=== PATIENT | male | born 1970 | race Caucasian/White ===

== ENCOUNTER 2024-09-13 14:11 | Inpatient (IN) | payer OTHER, SELFPAY ==
[2024-09-13] VITALS (10 sets, daily range): BP systolic 111–171; BP diastolic 51–89; PULSE 71–84; BMI 32.9
--- NOTE | 2024-09-13 10:29 | ED.GENMED ---
History of Present Illness
General
Chief Complaint: Abdominal Pain
Source: patient
Exam Limitations: none
Time Seen by Provider: 09/13/24 10:23
History of Present Illness
History of Present Illness:
54-year-old male presents complaining of mainly left lower abdominal pain but occasionally radiates to the epigastric region. This has been intermittent since last 2 weeks. It is sharp in nature without associated fever nausea or vomiting. He
does have history of diverticulitis. No urinary symptoms. He also notes a history of a kidney stone. No chest pain. No shortness of breath. He had some loose stool with this and was taking Pepto-Bismol and noticed that his stool was dark
temporarily then this resolved.
Past History
Past History
ED Past Medical History: HTN, Hypercholesterolemia, Psychiatric (Alcohol abuse, social anxiety) and Other (Diverticulitis)
ED Past Surgical History: Negative Cardiac or Cholecystectomy
Social History
Tobacco: Smoker
Alcohol: Chronic alcoholic
Drug: None
Personal: Other
Living: with roommate
Employment: Employed
Family History
Family History: Unable to obtain
Phy Exam
Physical Exam
Physical Exam:
General: Well-appearing male no respiratory distress
HEENT normocephalic atraumatic
Heart: Regular rate and rhythm
Lungs: Clear no wheeze
Abdomen soft mild tenderness to the left lower quadrant no guarding or rebound nondistended no costovertebral angle tenderness
Extremities: No cyanosis
Course
Orders/Labs/Results
Orders:
Orders
09/13/24 10:29
CT Abd/pelvis W Iv Cont Urgent
Comment:
Reason For Exam: llq pain
09/13/24 11:03
Complete Blood Count/With Diff Urgent
Comprehensive Metabolic Panel Urgent
Lipase Urgent
Urinalysis Reflex To Culture Urgent
Date Specimen was Collected: 09/13/24
Time Specimen was Collected: 11:02
Urine Microscopic Reflex Cult Urgent
09/13/24 11:24
Ketorolac [Toradol] 15 mg IV NOW STA
09/13/24 13:15
Type+Screen Urgent
Pantoprazole [Protonix IV] 40 mg IV NOW STA
Piperacillin/Tazo 3.375 Gram [Zosyn] 3.375 gram in 50 ml IV NOW
Abnormal Lab Results
09/13/24
11:03
WBC 11.8 H 10^3/uL
(4.8-10.8)
RBC 2.71 L 10^6/uL
(4.70-6.10)
Hgb 8.4 L g/dL
(13.0-18.0)
Hct 24.7 L %
(39.0-52.0)
MPV 11.1 H fL
(7.4-10.4)
Abs Immat Gran (auto) 0.1 H 10^3/uL
(0-0.05)
Absolute Neuts (auto) 9.4 H 10^3/uL
(1.4-6.5)
Absolute Lymphs (auto) 1.1 L 10^3/uL
(1.2-3.4)
Absolute Monos (auto) 0.9 H 10^3/uL
(0.1-0.6)
Neutrophils % 79.6 H %
(42.2-75.2)
Lymphocytes % 9.5 L %
(20.5-51.1)
Chloride 110 H mmol/L
(98-107)
BUN 26 H mg/dl
(9-20)
Glucose 113 H mg/dl
(70-99)
Total Protein 6.0 L g/dl
(6.3-8.2)
Urine Bacteria (Reflex) Few A
(Negative)
Urine Albumin (Reflex) 1+ A
(Neg - Trace)
06/21/25 11:03
09/13/24 11:03
Vital Signs
Initial and Last Documented VS:
Initial Vital Signs
Temp Pulse Resp BP Pulse Ox
98.9 F 101 18 162/89 98
09/13/24 10:15 09/13/24 10:15 09/13/24 10:15 09/13/24 10:15 09/13/24 10:15
Last Documented Vital Signs
Temp Pulse Resp BP Pulse Ox
98.9 F 88 11 171/84 98
09/13/24 10:15 09/13/24 12:00 09/13/24 12:00 09/13/24 12:00 09/13/24 11:19
MDM/Problems Addressed
Differential Diagnosis Includes:
Abdominal pain mainly left lower. Consider viral illness versus diverticulitis versus renal colic
Check labs. Will order CT of the abdomen
*Pulse Oximetry
SaO2: 98
Oxygen Mode of Delivery: Room air
Patient hypoxic: no
*Critical Care Note
Total Time (30-74mins, 75-104mins- exclusive of procedures): Not Applicable
Update Note
Update Note:
CT demonstrates acute diverticulitis as well as acute peptic ulcer disease in the second portion of the duodenum. Patient reexamined he does appear pale. Vital signs have remained stable. Rectal exam was performed. No evidence of blood on
Hemoccult testing. Although there was no significant stool in the rectum at the time of test. Patient is not anticoagulated. His hemoglobin is 8.4. Will admit for treatment of diverticulitis and anemia in the setting of peptic ulcer disease.
Hospitalist and GI team made aware
ED Attending Note
-
Portions of this chart may have been created with voice recognition software.� Occasional wrong word or��sound alike� substitutions may have occurred due to the inherent limitations of voice recognition software.
Discharge Plan
Departure
Patient Disposition: Admit
Date of Disposition: 09/13/24
Time of Disposition: 13:24
Presentation/result/management discussed w/ accepting MD/DO: Hospitalist
Discharge Problem:
Anemia, GI bleed, Acute diverticulitis
Prescriptions:
No Action
latanoprost 1 DROP drops
1 drp OPHTHALMIC HS
Patient Comments:
both eyes
Referrals:
Latoya Esparza MD [Family Provider]
Interventions
Interventions:
*Risk Screen - Suicide Last Done: 09/13/24 10:18
*General Assessment Last Done: 09/13/24 10:15
*Neglect/Abuse Screening Last Done: 09/13/24 10:15
*ED- Fall Risk Assessment Last Done: 09/13/24 11:09
*ED COVID-19 Vaccine History Last Done: 09/13/24 11:09
HS-Guhthj-Zytcjncbrz Assessment Last Done: 09/13/24 11:24
Discharge Date and Time
Print Language: ARMENIAN
[2024-09-13 11:39] LABS: % Basophils 0.4 % (0-2); % Eosinophils 2.5 % (0-6); % Immature Granulocytes 0.4 % (0-0.5); % Lymphocytes 9.5 % (20.5-51.1); % Monocytes 7.6 % (1.7-9.3); % Neutrophils 79.6 % (42.2-75.2); Absolute Basophils 0.1 10^3/uL (0-0.2); Absolute Eosinophils 0.3 10^3/uL (0-0.7); Absolute Immature Granulocytes 0.1 10^3/uL (0-0.05); Absolute Lymphocytes 1.1 10^3/uL (1.2-3.4); Absolute Monocytes 0.9 10^3/uL (0.1-0.6); Absolute Neutrophils 9.4 10^3/uL (1.4-6.5); Hematocrit 24.7 % (39.0-52.0); Hemoglobin 8.4 g/dL (13.0-18.0); Mean Corpuscular Volume 91.1 fL (80.0-94.0); Mean Platelet Volume 11.1 fL (7.4-10.4); Nucleated Red Blood Cells % 0 % (-); Platelet Count 252 10^3/uL (130-400); Red Blood Cell Count 2.71 10^6/uL (4.70-6.10); Red Cell Dist. Width 13.3 % (11.5-14.5); White Blood Cell Count 11.8 10^3/uL (4.8-10.8)
[2024-09-13 11:43] LABS: Urine Albumin 1+ (Neg - Trace); Urine Bilirubin Negative (Negative); Urine Character Cloudy (Clear); Urine Color Yellow; Urine Glucose Negative (Negative); Urine Ketone Negative (Negative); Urine Leukocyte Negative (Negative); Urine Nitrite Negative (Negative); Urine Occult Blood Negative (Negative); Urine Specific Gravity 1.025 (<1.030); Urine Urobilinogen Negative (Neg - 1+)
[2024-09-13] MEDS: TORADOL 15 MG IV (11:50)
[2024-09-13 12:06] LABS: ALT (SGPT) 16 U/L (0-50); AST (SGOT) 17 U/L (17-59); Albumin 3.7 g/dl (3.5-5.0); Alkaline Phosphatase 92 U/L (38-126); Blood Urea Nitrogen 26 mg/dl (9-20); Calcium 9.2 mg/dl (8.4-10.2); Carbon Dioxide 25 mmol/L (22-30); Chloride 110 mmol/L (98-107); Estimated Creatinine Clearance 109 ml/min; Glucose 113 mg/dl (70-99); Lipase 26 U/L (23-300); Potassium 5.1 mmol/L (3.5-5.1); Sodium 141 mmol/L (135-145); Total Bilirubin 0.4 mg/dl (0.2-1.3); eGFR > 60.00
[2024-09-13 12:21] LABS: Urine Squamous Cell 0-2 /LPF (Few); Urine Uric Acid Crystals Present
[2024-09-13 12:22] LABS: Urine Bacteria Few (Negative); Urine Red Blood Cell 0-2 /HPF (0-2); Urine White Cell 0-2 /HPF (0-5)
[2024-09-13] MEDS: PROTONIX IV 40 MG IV (13:30)
[2024-09-13] MEDS: ZOSYN 50 IV ×2 (13:33→17:07)
--- NOTE | 2024-09-13 13:39 | HPS.HSE ---
Family Physician
-
Family Physician: Latoya Esparza
Chief Complaint
-
Abdominal pain
History of Present Illness
54-year-old man left lower abdominal pain intermittent for the past 2 weeks he had some dark/black stool he took some Pepto-Bismol as well. No fever or dizziness. Patient stated that he has been nauseous but no vomiting. No bloody stools. Pain 9
out of 10 in intensity worse with p.o. intake. He was also taking naproxen twice a day for pain
Medical History
Past Medical History
Past Medical History: Reports Other
Additional Past Medical History:
Hypertension, hyperlipidemia, depression, history of diverticulitis,
Past Surgical History: Reports Other
Additional Past Surgical History:
Left shoulder surgery. But hold for intracranial hemorrhage treated at [facility] 2 years ago
Social History
Tobacco: Former Smoker
Alcohol: Former
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
Family History
Family History: Diabetes (Mother)
Allergies / Home Medications
Allergies reflects when Allergies were last updated in [facility].
Home Medications with original date entered in [facility]
Allergy/Medication List:
Allergies
Allergy/AdvReac Type Severity Reaction Status Date / Time
amoxicillin (Amoxicillin) Allergy Unknown Verified 09/13/24 10:14
Home Medications
latanoprost 0.005 % eye drops 1 drp BOTH EYES HS 12/24/09
amlodipine 5 mg tablet (Norvasc) 5 mg PO DAILY 09/13/24
atorvastatin 20 mg tablet (Lipitor) 20 mg PO QPM 09/13/24
escitalopram oxalate 20 mg tablet (Lexapro) 20 mg PO DAILY 09/13/24
lisinopril 20 mg tablet 20 mg PO DAILY 09/13/24
naproxen sodium 220 mg tablet (Aleve) 1,100 mg PO Q6HPRN PRN mild pain 09/13/24
Review of Systems
-
Cardiac: Denies Chest Pain
Abdomen/GI: Reports Abdominal Pain, Nausea, Diarrhea, Black Stools, Anorexia and Pain; Denies Vomiting, Constipated or Bloody Stools
: Denies Frequency
Physical Exam
Vital Signs
Vital Signs
Temp Pulse Resp BP Pulse Ox
98.9 F 88 11 171/84 98
09/13/24 10:15 09/13/24 12:00 09/13/24 12:00 09/13/24 12:00 09/13/24 11:19
Physical Exam
Respiratory: Clear
Cardiac: S1/S2 and Regular Rhythm
GI: Soft and Tender (diffuse)
Skin: Warm
Neuro: Nonfocal/grossly intact
Psych: Intact Judgment/Insight
Laboratory Results
-
09/13/24 11:03
09/13/24 11:03
Laboratory Results
Total Bilirubin 0.4 mg/dl (0.2-1.3) 09/13/24 11:03
AST 17 U/L (17-59) 09/13/24 11:03
ALT 16 U/L (0-50) 09/13/24 11:03
Alkaline Phosphatase 92 U/L (38-126) 09/13/24 11:03
Lipase 26 U/L (23-300) 09/13/24 11:03
Data Reviewed
-
Medical Tests (Nuc Med, Echo, EKG etc): Image Personally Visualized and interpreted (Sinus rhythm with supraventricular complexes.)
Impression/Plan
-
IMPRESSION/PLAN:
CT abdomen pelvis-acute diverticulitis of the distal descending colon. Acute peptic ulcer disease or acute diverticulitis of the second portion of the duodenum with moderate submucosal edema and surrounding inflammation. Severe Dyche reticulosis
throughout the descending and sigmoid colon. Moderate amount of fecal material in the proximal colon. Small hiatal hernia. Mild diffuse hepatic steatosis. Small bilateral nonobstructing intrarenal calculi. Severe discogenic DDD L5-S1
# Abdominal pain
Secondary to diverticulitis/peptic ulcer
N.p.o. with IV fluids
PPI drip and also IV antibiotics-Zosyn
Never had a colonoscopy was scheduled twice but never happened
# Anemia
Likely secondary to subacute GI blood loss
Check iron studies
PPI drip
Stop naproxen
GI evaluation for EGD
# Severe diverticulosis descending and sigmoid colon
# Hyperlipidemia-continue Lipitor
# Hypertension- amlodipine and lisinopril
# Hiatal hernia-continue PPI
# Nephrolithiasis
# Traumatic head injury with intracranial hemorrhage with bur hole treated at [facility] 2 years ago
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
# Hepatic steatosis-likely secondary to previous alcohol use. Weight loss recommended
# Depression-continue Lexapro
# History of alcohol-related pancreatitis
# Obesity with a BMI of 32
# History of heavy alcohol use-quit 10 years ago
# Ex smoker -quit 2 years ago
# DVT prophylaxis-SCDs
# Full code
Part of this note was created using voice recognition system. Occasional wrong word or��sound alike� substitutions may have inadvertently occurred due to the inherent limitations of voice recognition software. If noted kindly bring it to my
attention for correction.
time spent over 75 min
[2024-09-13 14:19] LABS: Iron 39 ug/dl (49-181); Magnesium 2.2 mg/dl (1.6-2.3)
[2024-09-13 14:28] LABS: Percent Saturation 12 % (20-50); Total Iron Binding Capacity 321 ug/dl (261-462)
[2024-09-13] MEDS: NORVASC 5 MG PO (14:36)
[2024-09-13] MEDS: ZESTRIL 20 MG PO (14:36)
[2024-09-13 14:55] LABS: Ferritin 7.2 ng/ml (17.9-464.0)
[2024-09-13 15:09] LABS: Vitamin B12 385 pg/ml (239-931)
[2024-09-13] MEDS: D5LR 1000 IV (15:13)
[2024-09-13] MEDS: PROTONIX 100 IV (15:15)
[2024-09-13] MEDS: LIPITOR 20 MG PO (17:07)
[2024-09-13 18:03] LABS: Hemoglobin 8.3 g/dL (13.0-18.0)
[2024-09-13] MEDS: XALATAN OPHTHALMIC SOLUTION 1 DROP BOTH EYES (21:06)
[2024-09-14] VITALS (8 sets, daily range): BP systolic 109–149; BP diastolic 52–78; PULSE 62–86; BMI 31.7
[2024-09-14] MEDS: PROTONIX 100 IV ×3 (00:10→19:56)
[2024-09-14] MEDS: ZOSYN 50 IV ×4 (00:17→18:02)
[2024-09-14 02:06] LABS: Hematocrit 22.2 % (39.0-52.0); Hemoglobin 7.7 g/dL (13.0-18.0)
[2024-09-14] MEDS: D5LR 1000 IV ×2 (04:38→14:54)
[2024-09-14 07:24] LABS: % Basophils 0.6 % (0-2); % Eosinophils 6.5 % (0-6); % Immature Granulocytes 0.3 % (0-0.5); % Lymphocytes 17.6 % (20.5-51.1); % Monocytes 7.7 % (1.7-9.3); % Neutrophils 67.3 % (42.2-75.2); Absolute Basophils 0.1 10^3/uL (0-0.2); Absolute Eosinophils 0.6 10^3/uL (0-0.7); Absolute Lymphocytes 1.6 10^3/uL (1.2-3.4); Absolute Monocytes 0.7 10^3/uL (0.1-0.6); Hematocrit 24.7 % (39.0-52.0); Hemoglobin 8.3 g/dL (13.0-18.0); Mean Corp Hgb Conc. 33.6 g/dL (33.0-37.0); Mean Corpuscular Hgb 30.4 pg (27.0-31.0); Mean Corpuscular Volume 90.5 fL (80.0-94.0); Nucleated Red Blood Cells % 0 % (-); Platelet Count 253 10^3/uL (130-400); Red Blood Cell Count 2.73 10^6/uL (4.70-6.10); Red Cell Dist. Width 13.4 % (11.5-14.5); White Blood Cell Count 8.9 10^3/uL (4.8-10.8)
[2024-09-14 07:26] LABS: INR 1.01; PT 13.7 Sec (11.4-14.6)
[2024-09-14 07:47] LABS: ALT (SGPT) 15 U/L (0-50); AST (SGOT) 16 U/L (17-59); Albumin 3.4 g/dl (3.5-5.0); Alkaline Phosphatase 85 U/L (38-126); Blood Urea Nitrogen 16 mg/dl (9-20); Calcium 8.5 mg/dl (8.4-10.2); Carbon Dioxide 24 mmol/L (22-30); Chloride 110 mmol/L (98-107); Estimated Creatinine Clearance 107 ml/min; Glucose 109 mg/dl (70-99); Potassium 4.5 mmol/L (3.5-5.1); Sodium 138 mmol/L (135-145); Total Bilirubin 0.5 mg/dl (0.2-1.3); Total Protein 5.6 g/dl (6.3-8.2); eGFR > 60.00
[2024-09-14] MEDS: ZESTRIL 20 MG PO (08:03)
[2024-09-14] MEDS: LEXAPRO 20 MG PO (08:03)
[2024-09-14] MEDS: NORVASC 5 MG PO (08:03)
--- NOTE | 2024-09-14 11:12 | W.PN.HOSP.TC ---
Today's Communication/Plan
-
Clears
EGD in am
AB
Assessment / Plan
Assessment / Plan
54-year-old with abdominal pain and also black stools
CT abdomen pelvis-acute diverticulitis of the distal descending colon. Acute peptic ulcer disease or acute diverticulitis of the second portion of the duodenum with moderate submucosal edema and surrounding inflammation. Severe Dyche reticulosis
throughout the descending and sigmoid colon. Moderate amount of fecal material in the proximal colon. Small hiatal hernia. Mild diffuse hepatic steatosis. Small bilateral nonobstructing intrarenal calculi. Severe discogenic DDD L5-S1
# Abdominal pain
Secondary to acute diverticulitis/peptic ulcer
Clears with IV fluids
PPI drip and also IV antibiotics-Zosyn
Never had a colonoscopy was scheduled twice but never happened
Avoid any NSAIDS
# Anemia
Likely secondary to subacute GI blood loss
KARINA- replace IV
PPI drip
Stopped naproxen
GI evaluation for EGD planned 09/15/24
# Severe diverticulosis descending and sigmoid colon
# Hyperlipidemia-continue Lipitor
# Hypertension- Hold amlodipine and lisinopril . BP low
# Hiatal hernia-continue PPI
# Nephrolithiasis
# Traumatic head injury with intracranial hemorrhage with mickie hole treated at [facility] 2 years ago
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
# Hepatic steatosis-likely secondary to previous alcohol use. Weight loss recommended
# Depression-continue Lexapro
# History of alcohol-related pancreatitis
# Obesity with a BMI of 32
# History of heavy alcohol use-quit 10 years ago
# Ex smoker -quit 2 years ago
# DVT prophylaxis-SCDs
# Full code
Part of this note was created using voice recognition system. Occasional wrong word or��sound alike� substitutions may have inadvertently occurred due to the inherent limitations of voice recognition software. If noted kindly bring it to my
attention for correction.
Anticipated Discharge: 24 - 48 hours
Subjective/Interval History
-
Date of Service: September 14, 2024
Objective Data
-
Labs:
Laboratory Results
09/14/24 09/14/24
01:53 07:03
WBC 8.9
Hgb 7.7 L 8.3 L
Hct 22.2 L 24.7 L
Plt Count 253
PT 13.7
INR 1.01
Sodium 138
Potassium 4.5
Chloride 110 H
Carbon Dioxide 24
BUN 16
Creatinine 0.7
Glucose 109 H
Calcium 8.5
Total Bilirubin 0.5
AST 16 L
ALT 15
Alkaline Phosphatase 85
Vital Signs:
Vital Signs
Temp Pulse Resp BP Pulse Ox
98.0 F 64 16 109/63 98
09/14/24 07:00 09/14/24 07:00 09/14/24 07:00 09/14/24 07:00 09/14/24 07:00
I&O
09/13/24 09/14/24 09/15/24
06:59 06:59 06:59
Intake Total 925 / 925
Output Total 1450 / 1450
Balance -525 / -525
[2024-09-14] MEDS: TYLENOL 650 MG PO (11:42)
[2024-09-14] MEDS: MAALOX 30 ML PO (12:36)
--- NOTE | 2024-09-14 13:05 | CON.GI ---
Consultation
-
Date/Time Consultation Requested: 09/13/2024
Date/Time Consultation Performed: 09/14/2024
Requesting Provider: Hospitalist
Performing Provider: Azalea GALVEZ
Reason for Consultation: diverticultis / anemia
Medical History
Chief Complaint / HPI
Chief Complaint: Abdominal pain
History of Present Illness:
54-year-old male with below mentioned past medical history admitted with left lower quadrant abdominal pain for the last 2 weeks. Patient also claims he started seeing some blood in the stool intermittently. He took Pepto-Bismol for abdominal pain
and later noticed his stools turned dark/black. Currently resolved. History of NSAIDs use on regular basis. No prior EGD or colonoscopy. No prior episode of diverticulitis.
On admission WBC 11.8. Hb 8.4. Platelets 252
Liver test normal. Ferritin 7.2/iron 39/percentage saturation 12
CT abdomen/pelvis with IV contrast�acute diverticulitis of the distal descending colon. Acute peptic ulcer disease of the second portion of the duodenum versus diverticulitis of the duodenum.
Past Medical History
Past Medical History: Other (Hypertension, hyperlipidemia, depression, traumatic head injury with intracranial hemorrhage, history of alcohol related pancreatitis quit alcohol 10 years ago)
Social History
Tobacco: Former Smoker
Allergies / Home Medications
Allergy/AdvReac Type Severity Reaction Status Date / Time
amoxicillin (Amoxicillin) Allergy Unknown Verified 09/13/24 10:14
�Medication �Instructions �Recorded
latanoprost 0.005 % eye drops 1 drp BOTH EYES HS 12/24/09
amlodipine 5 mg tablet (Norvasc) 5 mg PO DAILY 09/13/24
atorvastatin 20 mg tablet (Lipitor) 20 mg PO QPM 09/13/24
escitalopram oxalate 20 mg tablet 20 mg PO DAILY 09/13/24
(Lexapro)
lisinopril 20 mg tablet 20 mg PO DAILY 09/13/24
naproxen sodium 220 mg tablet 1,100 mg PO Q6HPRN PRN mild pain 09/13/24
(Aleve)
Review of Systems
-
All other systems: A 12 pt ROS was Negative except as stated above in HPI
Vital Signs
Temp Pulse Resp BP Pulse Ox
97.9 F 72 16 112/68 100
09/14/24 11:00 09/14/24 11:00 09/14/24 11:00 09/14/24 11:00 09/14/24 11:00
Physical Exam
Exam
General: Well Developed and No Apparent Distress
Respiratory: Clear
Cardiac: S1/S2
GI: Soft, Non Tender and Non Distended
Neuro: AO x 3
Results
WBC 8.9 10^3/uL (4.8-10.8) 09/14/24 07:03
Hgb 8.3 g/dL (13.0-18.0) L 09/14/24 07:03
Hct 24.7 % (39.0-52.0) L 09/14/24 07:03
MCV 90.5 fL (80.0-94.0) 09/14/24 07:03
Plt Count 253 10^3/uL (130-400) 09/14/24 07:03
Absolute Neuts (auto) 6.0 10^3/uL (1.4-6.5) 09/14/24 07:03
PT 13.7 Sec (11.4-14.6) 09/14/24 07:03
INR 1.01 09/14/24 07:03
Sodium 138 mmol/L (135-145) 09/14/24 07:03
Potassium 4.5 mmol/L (3.5-5.1) 09/14/24 07:03
Chloride 110 mmol/L (98-107) H 09/14/24 07:03
Carbon Dioxide 24 mmol/L (22-30) 09/14/24 07:03
BUN 16 mg/dl (9-20) 09/14/24 07:03
Creatinine 0.7 mg/dL (0.7-1.3) 09/14/24 07:03
Calcium 8.5 mg/dl (8.4-10.2) 09/14/24 07:03
Total Bilirubin 0.5 mg/dl (0.2-1.3) 09/14/24 07:03
AST 16 U/L (17-59) L 09/14/24 07:03
ALT 15 U/L (0-50) 09/14/24 07:03
Alkaline Phosphatase 85 U/L (38-126) 09/14/24 07:03
Lipase 26 U/L (23-300) 09/13/24 11:03
Diagnostic Image Results:
CT abd/ pel with IV cont 09/13/2024
IMPRESSION:
1. ACUTE DIVERTICULITIS of the DISTAL DESCENDING COLON.
2. ACUTE PEPTIC ULCER DISEASE (or acute diverticulitis) of the 2nd portion of DUODENUM with moderate submucosal edema and surrounding inflammation.
3. Severe diverticulosis throughout the descending and sigmoid colon.
4. Moderate amount of fecal material in the proximal colon.
5. Small hiatal hernia.
6. Mild diffuse hepatic steatosis.
7. Small bilateral nonobstructing intrarenal calculi.
8. Severe discogenic degenerative disease at L5/S1.
Prior GI Procedures:
EGD: none
Colonoscopy: none
Assessment / Plan
-
54-year-old male admitted with left lower quad abdominal pain for 2 weeks. He also reports blood in the stool/dark stools. History of NSAIDs use. No prior EGD or colonoscopy
--Lower quadrant abdominal pain/blood in the stool/dark stool
-- Acute diverticulitis of distal descending colon on imaging
-- Acute peptic ulcer disease versus diverticulitis of the second portion of the duodenum with surrounding inflammation
-- Acute iron deficiency anemia on admission ( Hb was 8.4 on admission. Hemoglobin was 12.9 in 2022)
-- NSAIDs use
-- fatty liver
plan
Continue monitor H&H
continue PPI drip for now
Okay to start clear liquids today
With history of NSAID use/acute anemia/dark stools/CT imaging showing possible peptic ulcer disease -will schedule for EGD tomorrow to rule out upper GI bleeding
Continue antibiotics
Colonoscopy in 8 weeks as [id number] of diverticulitis
Total Time Spent with Patient (in minutes): 55
-
-
Thank you for consultation and allowing me to participate in the patient's care. Please call the database reporting consultant GI physician during the after hours with any questions or concerns.
[2024-09-14] MEDS: FERRLECIT 110 MG IV (14:53)
[2024-09-14] MEDS: LIPITOR 20 MG PO (18:02)
[2024-09-14] MEDS: XALATAN OPHTHALMIC SOLUTION 1 DROP BOTH EYES (21:04)
[2024-09-15] VITALS (14 sets, daily range): BP systolic 18–148; BP diastolic 48–135; PULSE 60–76; BMI 31.5
[2024-09-15] MEDS: ZOSYN 50 IV ×4 (01:28→20:26)
[2024-09-15] MEDS: PROTONIX 100 IV (06:06)
[2024-09-15] MEDS: LEXAPRO 20 MG PO (10:38)
[2024-09-15] MEDS: VITAMIN B-12 1000 MCG PO (10:38)
[2024-09-15] MEDS: D5LR 1000 IV (10:40)
--- NOTE | 2024-09-15 11:41 | W.PN.HOSP.TC ---
Today's Communication/Plan
-
see A/P
Assessment / Plan
Assessment / Plan
54-year-old M p/w abdominal pain and black stools.
CT abdomen pelvis
1. ACUTE DIVERTICULITIS of the DISTAL DESCENDING COLON.
2. ACUTE PEPTIC ULCER DISEASE (or acute diverticulitis) of the 2nd portion of DUODENUM with moderate submucosal edema and surrounding inflammation.
3. Severe diverticulosis throughout the descending and sigmoid colon.
4. Moderate amount of fecal material in the proximal colon.
5. Small hiatal hernia.
6. Mild diffuse hepatic steatosis.
7. Small bilateral nonobstructing intrarenal calculi.
8. Severe discogenic degenerative disease at L5/S1.
A/P:
# Abdominal pain secondary to acute diverticulitis/peptic ulcer
s/p EGD 09/15: noted large hiatal hernia. Gastritis- Biopsied. Non-bleeding duodenal ulcer with no stigmata of bleeding.
Advance to Full liquid diet.
Per GI, Protonix 40 mg PO BID for 8 weeks then daily.
No ibuprofen, naproxen, or other NSAIDs
Follow pathology result outpt. Repeat upper endoscopy in 3 months to check healing.
Cont Zosyn for diverticulitis with plan to transition to PO Abx upon discharge
# Anemia, likely secondary to subacute GI blood loss
# KARINA- replace IV
Stopped naproxen
PPI as above
# Severe diverticulosis descending and sigmoid colon
# Hyperlipidemia-continue Lipitor
# Hypertension
Hold amlodipine and lisinopril with current low BP
# Hiatal hernia-continue PPI
# Nephrolithiasis
# Traumatic head injury with intracranial hemorrhage with mickie hole treated at [facility] 2 years ago
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
# Hepatic steatosis likely secondary to previous alcohol use.
Weight loss recommended
# Depression-continue Lexapro
# History of alcohol-related pancreatitis
# Obesity with BMI of 32
# History of heavy alcohol use
quit 10 years ago
# Ex smoker
quit 2 years ago
DVT prophylaxis- SCDs
Full code
Anticipated Discharge: Within 24 hours
Subjective/Interval History
-
Date of Service: September 15, 2024
Objective Data
-
Vital Signs:
Vital Signs
Temp Pulse Resp BP Pulse Ox
36.4 C 62 17 111/65 98
09/15/24 11:00 09/15/24 11:00 09/15/24 11:00 09/15/24 11:00 09/15/24 11:00
I&O
09/14/24 09/15/24 09/16/24
06:59 06:59 06:59
Intake Total 925 / 925 2200 / 2200
Output Total 1450 / 1450 1875 / 1875 200 / 200
Balance -525 / -525 325 / 325 -200 / -200
Review of Systems
-
History Source: Patient
All other systems: Reviewed and negative
Abdomen/GI: Denies Abdominal Pain
Physical Exam
-
General: Well Developed, Well Nourished, No Apparent Distress, Comfortable and Conversant; Negative Respiratory Distress
HEENT: Normocephalic, Atraumatic, Nose Appears Normal and Ears Appear Normal; Negative Oxygen
Respiratory: Clear to Auscultation and Non Labored Respirations; Negative Accessory Resp Muscle Use
Cardiac: Regular Rhythm and S1/S2
GI: Soft, Nontender, Nondistended and Normal Bowel Sounds
Skin: Warm and Dry
Neuro: Awake and Alert
Psych: Calm
Data Reviewed
-
CT Scan: Report Reviewed by me
[2024-09-15 13:34] LABS: % Basophils 0.6 % (0-2); % Eosinophils 7.2 % (0-6); % Immature Granulocytes 0.5 % (0-0.5); % Lymphocytes 15.7 % (20.5-51.1); % Monocytes 7.2 % (1.7-9.3); % Neutrophils 68.8 % (42.2-75.2); Absolute Eosinophils 0.5 10^3/uL (0-0.7); Absolute Monocytes 0.5 10^3/uL (0.1-0.6); Absolute Neutrophils 4.3 10^3/uL (1.4-6.5); Hematocrit 25.7 % (39.0-52.0); Hemoglobin 8.5 g/dL (13.0-18.0); Mean Corp Hgb Conc. 33.1 g/dL (33.0-37.0); Mean Corpuscular Hgb 30.1 pg (27.0-31.0); Mean Corpuscular Volume 91.1 fL (80.0-94.0); Mean Platelet Volume 10.7 fL (7.4-10.4); Nucleated Red Blood Cells % 0 % (-); Platelet Count 275 10^3/uL (130-400); Red Blood Cell Count 2.82 10^6/uL (4.70-6.10); Red Cell Dist. Width 13.2 % (11.5-14.5); White Blood Cell Count 6.3 10^3/uL (4.8-10.8)
--- NOTE | 2024-09-15 13:53 | W.PN.UPDATE ---
Update Note
Progress Note Update
EGD
Impression: - Large hiatal hernia.
- Gastritis. Biopsied.
- Normal duodenal bulb.
- Non-bleeding large duodenal ulcer with no stigmata of
bleeding.
repeat Hb this am stable .
continue PPI as recommended
avoid NSAIDs
Repeat EGD in 3 months to check healing
Continue antibiotics for diverticulitis.
Okay to advance to low residual diet if tolerating full liquid diet.
No further recommendation. GI will sign off. Follow-up with GI as outpatient for colonoscopy/repeat EGD.
[2024-09-15] MEDS: FERRLECIT 110 MG IV (16:00)
[2024-09-15] MEDS: LIPITOR 20 MG PO (17:19)
[2024-09-15] MEDS: NSS (PRESERVATIVE FREE) 10 ML IV (20:26)
[2024-09-15] MEDS: PROTONIX IV 40 MG IV (20:26)
[2024-09-15] MEDS: XALATAN OPHTHALMIC SOLUTION 1 DROP BOTH EYES (20:27)
[2024-09-15] MEDS: TYLENOL 650 MG PO (20:38)
[2024-09-16] MEDS: ZOSYN 50 IV ×3 (02:42→13:15)
[2024-09-16 03:00] VITALS: BP 126/64
[2024-09-16 05:54] LABS: % Basophils 0.8 % (0-2); % Eosinophils 8.8 % (0-6); % Immature Granulocytes 0.5 % (0-0.5); % Lymphocytes 22.5 % (20.5-51.1); % Monocytes 9.2 % (1.7-9.3); % Neutrophils 58.2 % (42.2-75.2); Absolute Basophils 0.1 10^3/uL (0-0.2); Absolute Eosinophils 0.7 10^3/uL (0-0.7); Absolute Lymphocytes 1.7 10^3/uL (1.2-3.4); Absolute Monocytes 0.7 10^3/uL (0.1-0.6); Absolute Neutrophils 4.4 10^3/uL (1.4-6.5); Hematocrit 26.9 % (39.0-52.0); Hemoglobin 8.9 g/dL (13.0-18.0); Mean Corp Hgb Conc. 33.1 g/dL (33.0-37.0); Mean Corpuscular Hgb 29.6 pg (27.0-31.0); Mean Corpuscular Volume 89.4 fL (80.0-94.0); Mean Platelet Volume 10.6 fL (7.4-10.4); Nucleated Red Blood Cells % 0 % (-); Platelet Count 302 10^3/uL (130-400); Red Blood Cell Count 3.01 10^6/uL (4.70-6.10); Red Cell Dist. Width 13.1 % (11.5-14.5); White Blood Cell Count 7.5 10^3/uL (4.8-10.8)
[2024-09-16 06:50] LABS: Blood Urea Nitrogen 14 mg/dl (9-20); Calcium 8.8 mg/dl (8.4-10.2); Carbon Dioxide 25 mmol/L (22-30); Chloride 107 mmol/L (98-107); Estimated Creatinine Clearance 93 ml/min; Glucose 88 mg/dl (70-99); Magnesium 2.3 mg/dl (1.6-2.3); Potassium 4.7 mmol/L (3.5-5.1); Sodium 139 mmol/L (135-145); eGFR > 60.00
[2024-09-16 07:08] VITALS: BP 124/73
[2024-09-16] MEDS: PROTONIX IV 40 MG IV (07:38)
[2024-09-16] MEDS: LEXAPRO 20 MG PO (07:38)
[2024-09-16] MEDS: VITAMIN B-12 1000 MCG PO (07:38)
[2024-09-16] MEDS: NSS (PRESERVATIVE FREE) 10 ML IV (07:38)
--- NOTE | 2024-09-16 10:14 | W.PN.HOSP.TC ---
Addendum entered and electronically signed by Audra Lozano MD 09/16/24 12:13:
Total DC time 40 minutes
Original Note:
Today's Communication/Plan
-
see A/P
Assessment / Plan
Assessment / Plan
54-year-old M p/w abdominal pain and black stools.
CT abdomen pelvis
1. ACUTE DIVERTICULITIS of the DISTAL DESCENDING COLON.
2. ACUTE PEPTIC ULCER DISEASE (or acute diverticulitis) of the 2nd portion of DUODENUM with moderate submucosal edema and surrounding inflammation.
3. Severe diverticulosis throughout the descending and sigmoid colon.
4. Moderate amount of fecal material in the proximal colon.
5. Small hiatal hernia.
6. Mild diffuse hepatic steatosis.
7. Small bilateral nonobstructing intrarenal calculi.
8. Severe discogenic degenerative disease at L5/S1.
A/P:
# Abdominal pain secondary to acute diverticulitis/peptic ulcer
s/p EGD 09/15: noted large hiatal hernia. Gastritis- Biopsied. Non-bleeding duodenal ulcer with no stigmata of bleeding.
Full liquid diet advanced to low residue and pt tolerated well.
Per GI, Protonix 40 mg PO BID for 8 weeks then daily.
No ibuprofen, naproxen, or other NSAIDs
Follow pathology result outpt. Repeat upper endoscopy in 3 months to check healing.
Cont Zosyn for diverticulitis with plan to transition to PO Abx Levaquin/Flagyl upon discharge for 3 more days (total 7 days)
# Anemia, likely secondary to subacute GI blood loss
# KARINA- replace IV
Stopped naproxen
PPI as above
# Severe diverticulosis descending and sigmoid colon
# Hyperlipidemia-continue Lipitor
# Hypertension
Hold amlodipine and lisinopril with current low BP
# Hiatal hernia-continue PPI
# Nephrolithiasis
# Traumatic head injury with intracranial hemorrhage with mickie hole treated at [facility] 2 years ago
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
# Hepatic steatosis likely secondary to previous alcohol use.
Weight loss recommended
# Depression-continue Lexapro
# History of alcohol-related pancreatitis
# Obesity with BMI of 32
# History of heavy alcohol use
quit 10 years ago
# Ex smoker
quit 2 years ago
DVT prophylaxis- SCDs
Full code
Anticipated Discharge: Today
Subjective/Interval History
-
Date of Service: September 16, 2024
Objective Data
-
Labs:
Laboratory Results
09/16/24
05:36
WBC 7.5
Hgb 8.9 L
Hct 26.9 L
Plt Count 302
Sodium 139
Potassium 4.7
Chloride 107
Carbon Dioxide 25
BUN 14
Creatinine 0.8
Glucose 88
Calcium 8.8
Vital Signs:
Vital Signs
Temp Pulse Resp BP Pulse Ox
37.1 C 65 17 124/73 97
09/16/24 07:08 09/16/24 07:08 09/16/24 07:08 09/16/24 07:08 09/16/24 07:08
I&O
09/15/24 09/16/24 09/17/24
06:59 06:59 06:59
Intake Total 0 / 2200 1909 / 1909
Output Total 1875 / 1875 1400 / 1400
Balance 325 / 325 510 / 510
Review of Systems
-
History Source: Patient
All other systems: Reviewed and negative
Abdomen/GI: Denies Abdominal Pain
Physical Exam
-
General: Well Developed, Well Nourished, No Apparent Distress, Comfortable and Conversant; Negative Respiratory Distress
HEENT: Normocephalic, Atraumatic, Nose Appears Normal and Ears Appear Normal; Negative Oxygen
Respiratory: Clear to Auscultation and Non Labored Respirations; Negative Accessory Resp Muscle Use
Cardiac: Regular Rhythm and S1/S2
GI: Soft, Nontender, Nondistended and Normal Bowel Sounds
Skin: Warm and Dry
Neuro: Awake and Alert
Psych: Calm
Data Reviewed
-
CT Scan: Report Reviewed by me
[2024-09-16 11:00] VITALS: BP 132/68
--- NOTE | 2024-09-16 11:54 | W.DCSUMMARY ---
Discharge Summary
Discharge Data
Date of Admission: 09/13/24
Date of Discharge: 09/16/24
-
Pending Results: No
Hospital Course
Principal Diagnosis:
Abdominal pain secondary to acute diverticulitis and peptic ulcer
Iron deficiency anemia, likely secondary to subacute GI blood loss
Chronic Diagnoses:�
Severe diverticulosis descending and sigmoid colon
Hyperlipidemia on Lipitor
Hypertension, [employer] amlodipine and lisinopril held with borderline blood pressure during hospital admission
Hiatal hernia-continue PPI
Nephrolithiasis
Traumatic head injury with intracranial hemorrhage with mickie hole treated at [facility] 2 years ago
Severe discogenic DDD L5-S1 and also DDD of C spine
Hepatic steatosis likely secondary to previous alcohol use.
Depression, on Lexapro
History of alcohol-related pancreatitis
Obesity with BMI of 32
History of heavy alcohol use, quit 10 years ago
Ex smoker, quit 2 years ago
Consultations:�
Gastroenterology
Procedures:�
EGD 09/15: noted large hiatal hernia. Gastritis- Biopsied. Non-bleeding duodenal ulcer with no stigmata of bleeding.
Clinical course:�
This is a 54-year-old male, with past medical history as stated above, who presented with black stool and abdominal pain.
Problem 1:
Abdominal pain secondary to acute diverticulitis and peptic ulcer.
His CT AP noted acute diverticulitis of the distal descending colon, as well as acute peptic ulcer disease of the cecum portion of duodenum.
He underwent EGD on 09/15: which noted large hiatal hernia, gastritis which was biopsied, non-bleeding duodenal ulcer with no stigmata of bleeding.
He was informed to continue Protonix 40 mg twice daily for 8 weeks, then daily after that.
He has also been instructed to follow-up with GI outpatient for biopsy result and to repeat upper endoscopy in few months to check for healing.
He has been informed to stop taking naproxen, ibuprofen, or any other NSAIDs.
He received IV antibiotic Zosyn for diverticulitis, and he can continue with oral antibiotics Levaquin/Flagyl for 3 more days following discharge (total 7 days).
Problem 2:
Iron deficiency anemia, likely secondary to subacute GI blood loss.
He received IV iron while in the hospital.
He has been informed to stop taking naproxen, ibuprofen, or any other NSAIDs.
As for the rest of his medical problems, they were stable during his hospital stay.
Discharge Plan
-
Patient Disposition: Home (Routine Discharge)
Discharge Diagnosis/Procedures: Abdominal pain secondary to acute diverticulitis/peptic ulcer;
status post EGD 09/15 (noted large hiatal hernia, Gastritis- Biopsied, Non-bleeding duodenal ulcer with no stigmata of bleeding);
Anemia likely secondary to subacute GI blood loss
Condition: Good
Diet: As tolerated
Activity: As tolerated
Driving Restrictions: As prior to admission
Activity Restrictions/Additional Instructions:
Follow up biopsy result with GI outpatient.
Repeat upper endoscopy in 3 months with GI to check healing.
Referrals:
Latoya Esparza MD [Family Provider] - in less than 1 week
Additional Discharge Medication Instructions: Your Norvasc and Lisinopril were stopped due to borderline low blood pressure. Check with your PCP before resuming.
Take Protonix 40 mg PO twice daily for 8 weeks then daily after that.
Stopped naproxen, ibuprofen, or any other NSAIDs
Take the antibiotics Levaquin and Flagyl for 3 more days
Prescriptions:
New
cyanocobalamin (vitamin B-12) [Vitamin B-12] 1,000 mcg Tablet
1,000 mcg PO DAILY Qty: 30 0RF
metronidazole 500 mg tablet
500 mg PO Q8H 3 Days Qty: 9 0RF
levofloxacin 750 mg tablet
750 mg PO DAILY 3 Days Qty: 3 0RF
pantoprazole [Protonix] 40 mg tablet,delayed release (DR/EC)
40 mg PO BID Qty: 90 0RF
Rx Instructions:
40 mg PO BID for 8 weeks then daily.
Continued
latanoprost 1 DROP drops
1 drp BOTH EYES HS
atorvastatin [Lipitor] 20 mg Tablet
20 mg PO QPM
escitalopram oxalate [Lexapro] 20 mg Tablet
20 mg PO DAILY
Held
lisinopril 20 mg Tablet
20 mg PO DAILY
Hold Instructions: Resume on 09/24/24.
amlodipine [Norvasc] 5 mg Tablet
5 mg PO DAILY
Hold Instructions: Resume on 09/24/24.
Discontinued
naproxen sodium [Aleve] 220 mg Tablet
1,100 mg PO Q6HPRN PRN (Reason: mild pain)
Discharge Orders:
Discharge Patient (As Directed); Ordered 09/16/24
Ordered By: Audra Lozano
Discharge Date and Time
Print Language: PERSIAN
--- NOTE | 2024-09-16 12:23 | CM ---
CM met with with patient at bedside; he is a 54 year old male currently in hospital for abdominal pain secondary to acute diverticulitis/peptic ulcer. Pt admits to long history of alcohol use; ARANZA offered and declined.
He resides with roommate in a two story home, 2 steps to enter. He was independent in adls prior to admission without device.
He is employed. He has prescription plan.
Pt is cleared for discharge.
Plan: Home, no needs.
[2024-09-16] MEDS: FERRLECIT 110 MG IV (13:15)
[2024-09-16 15:00] VITALS: BP 126/76
== END 2024-09-16 15:43 | disposition home or self-care (01) | DRG 392 ==
LOC: 3 WEST ACU 14:11
PROVIDERS: Physician Assistant; ADMITTING PHYSICIAN Hospitalist; ATTENDING PHYSICIAN Internal Medicine; CONSULT PHYSICIAN Internal Medicine Gastroenterology; EMERGENCY PHYSICIAN Emergency Medicine; FAMILY PHYSICIAN Family Medicine
PROC: 0DB68ZX Excision of Stomach, Via Natural or Artificial Opening Endoscopic, Diagnostic (ICD-10-PCS; 2024-09-15)
DX: K57.32 Diverticulitis of large intestine without perforation or abscess without bleeding (principal); D62 Acute posthemorrhagic anemia; K44.9 Diaphragmatic hernia without obstruction or gangrene; K29.70 Gastritis, unspecified, without bleeding; F32.A Depression, unspecified; I10 Essential (primary) hypertension; E78.00 Pure hypercholesterolemia, unspecified; Z83.3 Family history of diabetes mellitus; Z88.0 Allergy status to penicillin; M51.379 Other intervertebral disc degeneration, lumbosacral region without mention of lumbar back pain or lower extremity pain; K76.0 Fatty (change of) liver, not elsewhere classified; Z68.32 Body mass index [BMI] 32.0-32.9, adult; E66.9 Obesity, unspecified; Z87.442 Personal history of urinary calculi; Z87.891 Personal history of nicotine dependence; F10.10 Alcohol abuse, uncomplicated; Z79.899 Other long term (current) drug therapy; K26.9 Duodenal ulcer, unspecified as acute or chronic, without hemorrhage or perforation
CPT/HCPCS: 88305; 74177; 80048; 80053; 81003; 81015; 82607; 82728; 83540; 83550; 83690; 83735; 85014; 85018; 85025; 85610; 86850; 86900; 86901; 88342; 96375; 99285; J2916; Q9967

== ENCOUNTER 2025-01-01 06:13 | Day surgery (SDC) | payer OTHER, SELFPAY | END 2025-01-01 14:38 | disposition home or self-care (01) | LOC: GI 06:13 | PROVIDERS: ATTENDING PHYSICIAN Specialist | DX: Z12.11 Encounter for screening for malignant neoplasm of colon (principal); K57.32 Diverticulitis of large intestine without perforation or abscess without bleeding; K57.30 Diverticulosis of large intestine without perforation or abscess without bleeding; K44.9 Diaphragmatic hernia without obstruction or gangrene; K26.0 Acute duodenal ulcer with hemorrhage; D12.2 Benign neoplasm of ascending colon; D12.3 Benign neoplasm of transverse colon; D12.8 Benign neoplasm of rectum; D12.5 Benign neoplasm of sigmoid colon | CPT/HCPCS: 45385; 45380; 43235; 88305 ==

== ENCOUNTER → 2025-03-23 15:40 | Outpatient (REF) | payer OTHER, SELFPAY | LOC: HWRCS 15:40 | PROVIDERS: ATTENDING PHYSICIAN Family Medicine | DX: R01.1 Cardiac murmur, unspecified (principal) | CPT/HCPCS: 93306 ==